=== PATIENT | male | born 1940 | race Caucasian/White ===

== ENCOUNTER 2017-04-15 09:28 | Inpatient (IN) ==
--- NOTE | 2017-04-14 22:03 | Discharge Summary ---
<Zuri Purdy - Last Filed: 04/14/17 22:00> Date of Encounter: 04/14/17 - Discharge Diagnosis (1) Rotator cuff tear arthropathy of right shoulder Priority: Primary Status: Acute (2) Status post total replacement of right shoulder Priority: Primary Status: Acute (3) History of abdominal aortic aneurysm (AAA) Priority: Secondary Status: Chronic (4) COPD (chronic obstructive pulmonary disease) Priority: Secondary Status: Chronic Qualifiers: COPD type: unspecified COPD Qualified Code(s): J44.9 - Chronic obstructive pulmonary disease, unspecified (5) HTN (hypertension) Priority: Secondary Status: Chronic Qualifiers: Hypertension type: essential hypertension Qualified Code(s): I10 - Essential (primary) hypertension (6) DMII (diabetes mellitus, type 2) Priority: Secondary Status: Chronic Qualifiers: Diabetes mellitus complication status: without complication Diabetes mellitus skilled nursing insulin use: without supervisor long goods use Qualified Code(s): E11.9 - Type 2 diabetes mellitus without complications (7) History of MD (myocardial infarction) Priority: Secondary Status: Chronic (8) Pancoast tumor of right lung Priority: Secondary Status: Chronic - Discharge Medications Home Medications: Aspirin 81 mg PO DAILY 08/30/16 [History] Cholecalciferol (D-3) [Vitamin D] 1,000 unit PO DAILY 08/30/16 [History] Amitriptyline [Elavil] 25 mg PO HS 12/24/16 [History] Tamsulosin [Flomax] 0.4 mg PO DAILY 12/24/16 [History] Levothyroxine [Synthroid] 25 mcg PO 0630 #30 tablet 02/08/17 [Rx] OxyCODONE Immed Rel [Roxicodone 5 MG] 5 - 10 mg PO Q6HR PRN #40 tablet 04/14/17 [Rx] Atorvastatin Calcium [Lipitor] 40 mg PO DAILY 04/15/17 [History] LORazepam [Ativan] 0.5 mg PO DAILY 04/15/17 [History] Allergies/Adverse Reactions: Allergies Penicillins [PCN] Allergy (Verified 02/07/17 11:26) See Comments "kidneys stopped working/ mouth swelled" Primary care physician: Kirby Mckinney, DO - Patient Status Disposition: Home, Self-Care Condition: Good - Discharge Instructions Follow Up With: Zuri Purdy, PAC [Physician Construction Consultant] - 04/25/17 2:00 pm Kirby Mckinney, DO [Primary Care Provider] - Additional Instructions: Discharge Instructions: Total Shoulder Please call [facility] ([phone]), your Primary Care Physician, or report to the Emergency Room if you have any of the following symptoms: Nausea, vomiting, fever greater that 101.5, swelling, chest pain, shortness of breath, increased pain/redness/drainage/odor for your incision site, numbness/ tingling, or any other concerning symptoms. ACTIVITY: Always keep your arm in the sling. Do not raise your arm away from your body. Do not use your arm to help with getting in or out of bed. No weight bearing permitted. Only perform those exercises given to you by your therapist. MEDICATIONS: Upon discharge resume your home medications. Take all the medications as prescribed. Take a stool softener if taking narcotic pain medications. Stool softeners are only effective if you drink enough fluids. Drink 6-8 glass of water or fluids a day, unless this is not allowed for another health problem. Despite using stool softeners, if you haven't had a bowel movement in 3 days, please switch to a gentle laxative. Gentle laxatives are sold over the counter. You should have a bowel movement within 24 hours, if not call the office. You will be discharged from the hospital with a prescription for pain medication. You are encouraged to decrease the use of narcotic pain medication as tolerated. Should you require a refill, please call the office. [facility] prescribes narcotic pain medication for only 4-6 weeks after surgery. If you require pain medication beyond this time period, you may be referred to your Primary Care Physician or to the Pain Clinic for further evaluation. Plan ahead for refills on pain medication as many narcotics either need to be picked up at the office or mailed. It is best to call 48-72 hours in advance of needing a prescription refill so you don't run out of medication. To help control the post-operative pain, you may take NSAIDs (Aleve,Advil, Motrin, Ibuprofen, Naprosyn) or Tylenol as prescribed on the bottle in addition to the pain medication. WOUND CARE: Leave the dressing on for 7-10 days. You may change the dressing if it becomes saturated greater than 50%. Do not get the dressing wet at anytime. Wash your hands with antibacterial soap, rinse and dry prior to any wound care. If you have itz the visiting nurse or rehab facility can remove the stapes 10-14 days after surgery and place steri-strips across the wound. Leave the steri-strips in place until they fall off on their own. You may let water from the shower run on top of the steri-strips. If you do not have a visiting nurse or rehab facility, you will need to return to the office at 10-14 days for the itz to be removed. If you have itching or redness around the dressing call the office. FOLLOW-UP: Please follow up with your surgeon in the orthopedic clinic, as scheduled - Hospital Course Hospital course: Mr. Damian is a 76 year old male - Time Spent with Patient Total time spent providing and/or coordinating discharge services: <Butch Aguilera - Last Filed: 04/18/17 14:43> Date of Encounter: 04/18/17 Time of Encounter: 14:42 - Discharge Diagnosis (1) Pancoast tumor of right lung Priority: Secondary Status: Chronic (2) Cancer associated pain Priority: Secondary Status: Chronic (3) Rotator cuff tear arthropathy of right shoulder Priority: Primary Status: Chronic (4) Status post total replacement of right shoulder Priority: Primary Status: Acute (5) History of abdominal aortic aneurysm (AAA) Priority: Secondary Status: Chronic (6) COPD (chronic obstructive pulmonary disease) Priority: Secondary Status: Chronic Qualifiers: COPD type: unspecified COPD Qualified Code(s): J44.9 - Chronic obstructive pulmonary disease, unspecified (7) HTN (hypertension) Priority: Secondary Status: Chronic Qualifiers: Hypertension type: essential hypertension Qualified Code(s): I10 - Essential (primary) hypertension (8) DMII (diabetes mellitus, type 2) Priority: Secondary Status: Chronic Qualifiers: Diabetes mellitus complication status: without complication Diabetes mellitus supervisor long goods insulin use: without supervisor long goods use Qualified Code(s): E11.9 - Type 2 diabetes mellitus without complications (9) History of MD (myocardial infarction) Priority: Secondary Status: Chronic Primary care physician: Kirby Mckinney DO - Patient Status Functional capacity at discharge: independent ambulation Overall status at discharge: patient is progressing back to baseline (Patient discharged on April 15) - Hospital Course Hospital course: Mr. Damian is a 76 year old male Status post total shoulder replacement. Patient discharged on the same day doing well no complaints. - Time Spent with Patient Total time spent providing and/or coordinating discharge services:
[2017-04-15] MEDS ORDERED: Famotidine 20 MG/2 ML VIAL IVP ONE (09:35)
[2017-04-15] MEDS ORDERED: Gabapentin 300 MG CAPSULE PO ONE (09:36)
[2017-04-15] MEDS ORDERED: Ringers Solution, Lactated 1,000 ML IVC SCH ×2 (09:45→15:22)
[2017-04-15] MEDS ORDERED: Clindamycin 900 MG/50 ML 900 MG/50 ML IV.SOLN IVPB ONE (09:47)
[2017-04-15] MEDS ORDERED: Albuterol 2.5 MG/3 ML NEBULIZER IH ONE (09:51)
--- NOTE | 2017-04-15 10:01 | History & Physical Report ---
Date of Encounter: 04/15/17 Time of Encounter: 10:01 24 Hour HP Update - Instructions Instructions: If the History and Physical is less than 30 days old and was completed prior to A.M. admission and or procedure and has NOT been updated on calendar day of procedure please complete this update prior to performing procedure. - Update Patient reports changes in Medical Condition: No Changes in examination, assessment, or condition: No Changes in Medication: No Preop tests/diagnostics Reviewed: Yes Surgery Remains Indicated: Yes Consent for Planned Operative Procedure(s) Verified: Yes - Pre-Operative Checklist Preoperative Checklist Indicated: No Prophylactic Antibiotic Ordered: Yes Is VTE Prophylaxis Indicated?: Yes
[2017-04-15] MEDS ORDERED: Lidocaine -MPF 2% 2 ML VIAL ONE (10:56)
[2017-04-15] MEDS ORDERED: *HR* Propofol 200 MG/20 ML VIAL IVP ONE (10:56)
[2017-04-15] MEDS ORDERED: *HR* Succinylcholine 200 MG/10 ML VIAL IVP ONE (10:56)
[2017-04-15] MEDS ORDERED: Ondansetron 4 MG/2 ML VIAL ONE (10:56)
[2017-04-15] MEDS ORDERED: *HR* FentaNYL (PF) 100 MCG/2 ML VIAL ONE (10:56)
--- NOTE | 2017-04-15 11:13 | Anesthesia Evaluation PreOp ---
Date of Encounter: 04/15/17 Time of Encounter: 11:00 - Past History Planned Operation: Rt Total Shoulder Replacement Cardiac History: [place] (1998), HTN, Hyperlipidemia, Cardiac Stent (1998), Other ( AAA stable 2015) Pulmonary History: Former smoker CITY EDITOR History: Denies Any Significant HX Other Medical History: Diabetes Type II (Accu check 109), GERD Anesthesia History: No Prior Anesthetic Complications Alcohol Use: none Drug use: none Medications and Allergies Aspirin 81 mg PO DAILY 08/30/16 [History] Cholecalciferol (D-3) [Vitamin D] 1,000 unit PO DAILY 08/30/16 [History] Amitriptyline [Elavil] 25 mg PO HS 12/24/16 [History] Tamsulosin [Flomax] 0.4 mg PO DAILY 12/24/16 [History] Levothyroxine [Synthroid] 25 mcg PO 0630 #30 tablet 02/08/17 [Rx] OxyCODONE Immed Rel [Roxicodone 5 MG] 5 - 10 mg PO Q6HR PRN #40 tablet 04/14/17 [Rx] Atorvastatin Calcium [Lipitor] 40 mg PO DAILY 04/15/17 [History] LORazepam [Ativan] 0.5 mg PO DAILY 04/15/17 [History] Allergies Penicillins [PCN] Allergy (Verified 02/07/17 11:26) See Comments "kidneys stopped working/ mouth swelled" - Meds/Allergy Pre-op Review Medications Reviewed: Yes Allergies Reviewed: Yes Anesthesia Results - Labs Laboratory Tests 04/09/17 04/09/17 12:54 12:54 Hgb 15.8 Hct 46.7 Plt Count 179 Sodium 139 Potassium 4.1 BUN 10 Creatinine 1.03 - Imaging EKG: report reviewed (SR with Arrhythmia) Anesthesia Exam O2 Sat Height 1.83 m Height 1.83 m Weight 71.214 kg Weight 71.214 kg O2 Sat by Pulse Oximetry 96 Vital Signs Temp Pulse Resp BP Pulse Ox 97.9 F 68 18 130/81 96 04/15/17 09:47 04/15/17 09:47 04/15/17 09:47 04/15/17 09:47 04/15/17 09:47 Height: 5'9 Weight: 155 lbs NPO (# of Hours): MN Pain Scale: 0 - HEENT Pupil (Motor): Pupils equal, EOMI Mallampati: III Teeth: Edentulous Oral Opening: Less than or equal to 3 - CITY EDITOR LOC: Oriented CITY EDITOR Motor: Normal RUE, Normal LUE, Normal RLE, Normal LLE, Normal Face CITY EDITOR Sensory: Normal: RUE, LUE, RLE, LLE, Face - Cardiac Rhythm: Regular Murmur: None JVD: No Carotid Bruit: No - Pulmonary Breath Sounds: bilateral Clear Respiratory Effort: Symmetrical Anesthesia Assess/Plan ASA Score: 3 (CAD HTN DM Gerd AAA) Modified [place] Scale for Level of Consciousness: Cooperative, oriented, and tranquil Anesthetic Plan: General, Regional Monitoring Plan: Standard Monitors Recovery Plan: PACU (Discussed GA and RA, agrees to proceed)
[2017-04-15] MEDS ORDERED: ROPIVACAINE HCL/PF 0.5% 30 ML VIAL ONE (11:42)
--- NOTE | 2017-04-15 12:07 | Anesthesia Procedures ---
Date of Encounter: 04/15/17 Time of Encounter: 11:50 Procedures: Anesthesia - Nerve Block Procedure Date: 04/15/17 Time: 11:50 Checklist: Correct Patient Identifier, Correct procedure Correct side: Right Blood Thinner: No Monitor Applied: EKG, BP, Pulse Oximetry Supplemental Oxygen via Nasal Cannula (L/min): 2 Sedation: Fentanyl (mcg): 100 Indication: Post Op Analgesia Pre-op Neuro Deficits: No Block Type: Supraclavicular, Other (intercostobrachial/ I. cervial Plexus) Catheter placed: No Sterile Technique: Yes Ultrasound used: Yes Anatomy identified: Yes Visual spread of Local: Yes Neuro Stimulation: No Blood on Needle Aspiration: No Smooth Injection of Local: Yes Pain with Injection of Local: No Prep: Chlorhexadine Needle: 22 x 50 mm Stimuplex Local: 0.25% Bupivicaine w/Clonidine 20 mcg/cc (20 cc total), Ropivacaine (0.5% with 8 of decadron supra. block) Volume (cc): 40 total Number of Attempts: 1 Complications: None/effective block Vitals: vss
[2017-04-15] MEDS ORDERED: EPHEDrine 50 MG/ML VIAL ONE (12:39)
[2017-04-15] MEDS ORDERED: *HR* Meperidine 25 MG/ML SYRINGE IVP PRN (12:54)
[2017-04-15] MEDS ORDERED: Ondansetron 4 MG/2 ML VIAL IVP ONE (12:54)
[2017-04-15] MEDS ORDERED: *HR* FentaNYL (PF) 100 MCG/2 ML VIAL IVP PRN (12:54)
--- NOTE | 2017-04-15 13:07 | Orthopedic Operative Note ---
Date of procedure: 04/15/17 Pre-op diagnosis: Right shoulder cuff tear arthropathy Post-op diagnosis: same Procedure: Procedure: Total Shoulder Replacment Reverse right Estimated blood loss: 100 cc Hardware: Metal and polyethylene replacement: Arthrex large glenoid baseplate, 2 4.5 screws. 1 6.5 screw, 42+4 glenosphere, 13 humeral stem, poly insert 6 Exam Under anesthesia: Full motion and no instability Procedural Notes: Irreparable tear supraspinatus and subscapularis Operative procedure: The patient was brought to the operating room and placed on the operating room table. After general anesthesia was administered the operative shoulder was examined. Findings were noted. The patient was placed in the modified beachchair position. All pressure points were padded appropriately. And the head was stabilized in the neutral position. The operative extremity was prepped and draped in the sterile surgical fashion. The patient received IV antibiotics prior to skin incision. A standard deltopectoral approach was made to the operative shoulder. Incision was made to the skin and subcutaneous tissue,hemo stasis was obtained with Bovie cautery. Using careful blunt dissection the cephalic vein was identified and mobilized medially. The deltopectoral interval was developed and the clavipectoral fascia was incised. The subscap was irreparable. The humerus was dislocated patient noted to have irreparable tear supraspinatus tendon, and the humeral cut was made along the anatomic neck. Anterior and posterior Bankart retractors were placed to expose the glenoid. The glenoid guide was seated and the centering hole was made. It was reamed with the appropriate reamer. The large baseplate was seated and secured with (2) 4.5 screws and one 6.5 screw. The baseplate was irrigated and dried and the knee to +4 Glenosphere was seated and secured with the Self taper. The Self taper was tested and found to be secure the humerus was redislocated and prepared with the diaphyseal reamers, followed by a broaching process up to the appropriate size 13 in the patient's anatomic version. The metaphyseal reamer was then utilized. Trial reduction found the shoulder to be relocatable. Trial components were removed and the appropriate 13 stem was impacted in place in the patient's anatomic version. Trial reduction found the shoulder to be relocatable and stable with the appropriate 6 Trial component was removed and the real implant was seated and secured the shoulder was reduced. The shoulder had excellent motion and excellent stability and no evidence of dislocation. The deep tissue was irrigated with pulse irrigation. The PA closed the shoulder. The deltopectoral interval was closed with a running #1 PDS suture, subcutaneous tissue was irrigated and closed with 0 PDS suture, the skin was closed with Dermabond. The patient was placed in a sterile dressing, abduction brace and extubated. The patient was then transferred to the recovery room in stable condition. Anesthesia: EDI Surgeon: Butch Aguilera Meteorological Technician: Zuri Purdy Condition: stable Disposition: PACU
[2017-04-15 14:11] LABS: Hematocrit 44.6 % (37.5-50.1); Hemoglobin 14.5 g/dL (12.9-16.9)
--- NOTE | 2017-04-15 14:29 | Anesthesia Evaluation Post Op ---
Date of Encounter: 04/15/17 Time of Encounter: 14:15 - Vital Signs Vital Signs: Vital Signs/O2 Sat/Glucose, Most Current Temp Pulse Resp BP Pulse Ox 04/15/17 14:10 97.5 F L 66 16 115/72 95 04/15/17 13:51 97.9 F 75 16 121/77 94 04/15/17 13:41 65 18 126/79 97 04/15/17 13:31 70 16 107/71 93 04/15/17 13:20 97.6 F 68 14 93/61 94 04/15/17 12:21 60 14 146/92 98 04/15/17 12:09 58 16 145/89 99 04/15/17 11:54 59 16 152/89 99 04/15/17 11:43 58 14 131/80 100 - Lungs Lungs: Clear Ascult./Percussion - Airway Airway: Non-obstructed - Cardiovascular Regular Rate - Mental Status Mental Status: Alert & Oriented, Answers Appropriately - Pain Pain Scale: 0 - Nausea Vomiting Nausea Vomiting: Not Present - Hydration Hydration: Ice chips - Discharge PostOp Status: Transfer Patient to floor
[2017-04-15] MEDS ORDERED: Naloxone 0.4 MG/ML INJ IVP PRN (15:22)
[2017-04-15] MEDS ORDERED: *HR* HYDROmorphone (PF) 1 MG/ML SYRINGE IVP PRN (15:22)
[2017-04-15] MEDS ORDERED: MOM Conc 10 ML UD.LIQ PO PRN (15:22)
[2017-04-15] MEDS ORDERED: Sennosides 8.6 MG TABLET PO PRN (15:22)
[2017-04-15] MEDS ORDERED: *HR* OxyCODONE Immed Rel 5 MG TABLET PO PRN ×2 (15:22)
[2017-04-15] MEDS ORDERED: Ondansetron 4 MG/2 ML VIAL IVP PRN (15:22)
[2017-04-15] MEDS ORDERED: Clindamycin 900 MG/50 ML 900 MG/50 ML IV.SOLN IVPB SCH (16:00)
[2017-04-15 16:56] VITALS: BP 124/82
[2017-04-15] MEDS ORDERED: *HR* Enoxaparin 30 MG/0.3 ML SYRINGE SQ SCH ×3 (18:00)
[2017-04-15] MEDS ORDERED: Temazepam 15 MG CAPSULE PO PRN (21:00)
[2017-04-16] MEDS ORDERED: Aspirin 81 MG TAB.CHEW PO SCH (09:00)
[2017-04-16] MEDS ORDERED: *HR* LORazepam 0.5 MG TABLET PO SCH (09:00)
[2017-04-16] MEDS ORDERED: Cholecalciferol (D-3) 1,000 UNIT TABLET PO SCH (09:00)
== END 2017-04-15 18:00 | disposition home or self-care (01) | DRG 483 ==
LOC: SAMDAY 09:28 → 3NENU 13:50
PROVIDERS: ADMIT Orthopaedic Surgery; ATTEND Orthopaedic Surgery

== ENCOUNTER 2018-02-27 05:51 | Inpatient (IN) ==
[2018-02-27] MEDS ORDERED: Vancomycin 1,000 MG, Sodium Chloride IRRigation 1,000 ML IR ONE (06:00)
[2018-02-27] MEDS ORDERED: Albuterol 2.5 MG/3 ML NEBULIZER IH ONE (06:27)
[2018-02-27] MEDS ORDERED: Ringers Solution, Lactated 1,000 ML IVC SCH (06:30)
--- NOTE | 2018-02-27 06:56 | Anesthesia Evaluation PreOp ---
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 History: Denies Any Significant HX Other Medical History: Hepatic (Elevated LFTs, unknown etiology), Renal (Kidney stones), Diabetes Type II (Diet controlled), Thyroid, GERD (Occasional) Anesthesia History: No Prior Anesthetic Complications, Past Anesthesia Alcohol Use: none Drug use: none Medications and Allergies Tamsulosin [Flomax] 0.4 mg PO DAILY 12/24/16 [History] Levothyroxine [Synthroid] 25 mcg PO 0630 #30 tablet 02/08/17 [Rx] Aspirin Enteric Coated [Aspirin EC] 325 mg PO DAILY 05/09/17 [History] Atorvastatin [Lipitor] 40 mg PO DAILY 09/25/17 [History] Orphenadrine Citrate 100 mg PO BID 02/27/18 [History] Temazepam [Restoril] 30 mg PO HS PRN 02/27/18 [History] 3 Allergy/AdvReac Type Severity Reaction Status Date / Time Penicillins [PCN] Allergy Hives Verified 02/27/18 06:57 - Meds/Allergy Pre-op Review Medications Reviewed: Yes Allergies Reviewed: Yes Anesthesia Results - Labs Laboratory Tests 10/29/16 02/04/18 02/11/18 10:01 10:01 08:30 Hgb Hct Plt Count PT INR APTT Creatinine Est GFR (Non-Af Amer) Hemoglobin A1c Calcium Magnesium 1.8 Alkaline Phosphatase 133 H Total Alk Phosphatase 124 H Albumin 4.1 Globulin 2.3 L 02/25/18 02/25/18 02/25/18 13:42 13:42 13:42 Hgb 15.2 Hct 46.4 Plt Count 151 PT 11.9 INR 1.1 APTT 33.5 Creatinine 0.89 Est GFR (Non-Af Amer) > 60 Hemoglobin A1c Calcium 8.9 Magnesium Alkaline Phosphatase Total Alk Phosphatase Albumin Globulin 02/25/18 13:42 Hgb Hct Plt Count PT INR APTT Creatinine Est GFR (Non-Af Amer) Hemoglobin A1c 6.5 H Calcium Magnesium Alkaline Phosphatase Total Alk Phosphatase Albumin Globulin - Imaging EKG: report reviewed (SINUS RHYTHM MODERATE INTRAVENTRICULAR CONDUCTION DELAY NONSPECIFIC ST & T-WAVE ABNORMALITY) Additional studies: STRESS TEST 02/21/2018: Fixed basal inferolateral defect Gated EF 57% TTE 08/2017: LVEF 50-55%. Normal LV systolic function with regional varation. Mild left ventricular diastolic dysfunction. Normal right ventricular structure and function. Probably moderate to severe mitral regurgitation - jet is eccentric and not well quantified. Possible poor coaptation or leaflet prolapsing. Recommend CARMELO for better visualization. No pulmonary hypertension. There is a trivial pericardial effusion present without tamponade. Anesthesia Exam O2 Sat Height 1.83 m Height 1.83 m Weight 67.585 kg Weight 67.585 kg O2 Sat by Pulse Oximetry 97 Vital Signs/O2 Sat/Glucose, Most Recent Temp Pulse Resp BP Pulse Ox 97.9 F 60 18 118/75 97 02/27/18 06:18 02/27/18 06:18 02/27/18 06:18 02/27/18 06:18 02/27/18 06:18 Blood Glucose* 117 - HEENT Mallampati: I Teeth: Edentulous Oral Opening: Greater than 3 - BLOCKING MACHINE OPERATOR LOC: Oriented BLOCKING MACHINE OPERATOR Motor: Normal RUE, Normal LUE, Normal RLE, Normal LLE, Normal Face - Cardiac Rhythm: Regular - Pulmonary Breath Sounds: bilateral Clear Anesthesia Assess/Plan ASA Score: 3 Modified [place] Scale for Level of Consciousness: Cooperative, oriented, and tranquil Anesthetic Plan: General Autologous Blood: Yes (Possible) Monitoring Plan: Standard Monitors, A-Line, CVC (Possible) Recovery Plan: PACU Anes Supervising Prov Stmt: Patient informed and consented. Risks, benefits, and alternatives discussed. Patient wishes to proceed.
[2018-02-27] MEDS ORDERED: Heparin 1,000 UNITS/500 mL 500 ML ONE ×2 (07:17→10:17)
[2018-02-27] MEDS ORDERED: Heparin 1,000 UNITS/500 mL 2,000 ML ONE (07:17)
[2018-02-27] MEDS ORDERED: CeFAZolin Syr 2,000MG/20 ML 2,000 MG/20 ML SYRINGE IVPB ONE (07:30)
--- NOTE | 2018-02-27 07:36 | History & Physical Report ---
Date of Encounter: 02/27/18 Time of Encounter: 07:28 24 Hour HP Update - Instructions Instructions: If the History and Physical is less than 30 days old and was completed prior to A.M. admission and or procedure and has NOT been updated on calendar day of procedure please complete this update prior to performing procedure. - Update Patient reports changes in Medical Condition: No Changes in examination, assessment, or condition: No Changes in Medication: No Preop tests/diagnostics Reviewed: Yes Surgery Remains Indicated: Yes Consent for Planned Operative Procedure(s) Verified: Yes - Pre-Operative Checklist Preoperative Checklist Indicated: Yes Prophylactic Antibiotic Ordered: Yes (vancomycin due to MRSA risk) Home Medications Include Beta Ingrid: No Beta Ingrid Taken Today (Day of Surgery): No Beta Ingrid Taken Yesterday (Day Prior to Surgery): No Is VTE Prophylaxis Indicated?: Yes
[2018-02-27] MEDS ORDERED: Isovue-300 150 ML INFUS..BTL IV ONE ×2 (07:40→08:04)
[2018-02-27] MEDS ORDERED: Isovue-300 50 ML VIAL IVP ONE ×2 (07:40→08:04)
[2018-02-27] MEDS ORDERED: *HR* FentaNYL (PF) 100 MCG/2 ML VIAL ONE ×2 (07:41→09:26)
[2018-02-27] MEDS ORDERED: *HR* Propofol 200 MG/20 ML VIAL IVP ONE (07:42)
[2018-02-27] MEDS ORDERED: *HR* Norepinephrine 4 MG/4 ML VIAL IVC ONE (07:43)
[2018-02-27] MEDS ORDERED: Acetaminophen IV 1,000 MG/100 ML INFUS..BTL ONE (07:44)
[2018-02-27] MEDS ORDERED: *HR* Vasopressin 20 UNIT/ML VIAL ONE (07:44)
[2018-02-27] MEDS ORDERED: Norepinephrine 4 MG in D5% in Water 250 ML IVC SCH (07:45)
[2018-02-27] MEDS ORDERED: Nitroglycerin 25 MG/250 ML INFUS..BTL IVC ONE (08:47)
[2018-02-27] MEDS ORDERED: *HR* Phenylephrine 10 MG/ML VIAL ONE (09:17)
[2018-02-27] MEDS ORDERED: *HR* Succinylcholine 200 MG/10 ML VIAL IVP ONE (09:17)
[2018-02-27] MEDS ORDERED: Dexamethasone 4 MG/ML VIAL ONE (09:17)
[2018-02-27] MEDS ORDERED: Lidocaine -MPF 2% 2 ML VIAL ONE (09:17)
[2018-02-27] MEDS ORDERED: *HR* Rocuronium Bromide 50 MG/5 ML VIAL ONE (09:17)
[2018-02-27] MEDS ORDERED: *HR* Heparin 5,000 UNIT/ML VIAL ONE (09:47)
[2018-02-27] MEDS ORDERED: *HR* Metoprolol 5 MG/5 ML VIAL IVP ONE (10:22)
[2018-02-27] MEDS ORDERED: *HR* Promethazine 25 MG/ML VIAL IVP PRN (10:43)
[2018-02-27] MEDS ORDERED: *HR* OxyCODONE Immed Rel 5 MG TABLET PO PRN ×2 (10:43→12:27)
[2018-02-27] MEDS ORDERED: Ondansetron 4 MG/2 ML VIAL IVP ONE (10:43)
[2018-02-27] MEDS ORDERED: Neostigmine Methylsulfate 3 MG/3 ML SYRINGE ONE ×2 (11:02→11:13)
[2018-02-27] MEDS ORDERED: Ipratropium/Albuterol Neb 3 ML ONE (11:12)
--- NOTE | 2018-02-27 11:17 | Operative Note ---
Date of procedure: 02/27/18 Pre-op diagnosis: abdominal aortic aneurysm Post-op diagnosis: same Procedure: 1. Introduction of catheter into the aorta via right common femoral artery. 2. Introduction of catheter into the aorta via left common femoral artery. 3. Right femoral vessel exposure for endograft placement. 4. Left femoral vessel exposure for endograft placement. 5. Endograft repair of abdominal aortic aneurysm with Cook Zenith graft and two docking limbs including radiologic supervision and interpretation. 6. Angioplasty of the bilateral docking limbs with overlap using 12 x 40 mm balloons. Complications: None Anesthesia: GETA Surgeon: John Ramirez Was there an assistant finance manager present: Yes Software Asset Manager: Min Mitchell Estimated blood loss (cc): 50 Specimen: None Condition: stable Disposition: PACU Procedure in Detail: Indications: The patient is a 77 year old male with a history of COPD, hyperlipidemia, coronary artery disease, hypertension and diabetes. His chronic history of kidney stones. As part of his evaluation he underwent a CT scan. He was found to have a 5cm infrarenal abdominal aortic aneurysm. His anatomy was appropriate for endograft placement. Repair was recommended to reduce his risk of rupture. Procedure: The patient was identified, brought to the operating room and placed in the supine position on the operating room table. After induction of general endotracheal anesthesia, the patient was cleaned and draped in normal sterile fashion. Oblique incisions were made over both groins sharply. Hemostasis was obtained with electrocautery. Using blunt and sharp and electrocautery dissection, the right and left common, deep and superficial femoral arteries were dissected circumferentially and surrounded with Vesseloops. At this point, the patient received 5000 units of heparin intravenously and then bilateral femoral punctures with large-bore needles were performed. Bentson wires were advanced into the aorta under fluoroscopic view. Given the anatomy, the main body was selected to be the right side of the patient. The needles were exchanged for bilateral #8-Kyrgyz sheaths and a long Pigtail catheter was advanced over the right wire into the aortic arch. The wire was replaced with a Lunderquist wire. The catheter was removed and repositioned in the suprarenal aorta via the left femoral artery. The main body was inserted over the Lunderquist wire with the contralateral limb being in the anterolateral position. An aortogram was then performed at the level of the renal artery. The graft was positioned just below the renal arteries and the first 2 segments were deployed. A repeat aortogram revealed adequate infrarenal placement. The graft was then deployed until the contralateral limb exposed. After confirming adequate infrarenal placement, the suprarenal stent was deployed in the usual fashion. The contralateral limb was then selected with a Bentson wire using a guiding catheter. Intragraft placement of the wire was confirmed by placing the pigtail and spinning it freely as well as injecting a small amount of contrast. An oblique view of the pelvis was performed with contrast to size the left extension limb. The #8-Kyrgyz sheath was removed and exchanged for the appropriate limb, which was advanced under fluoroscopic view and positioned. It was then expanded and the introducer was removed. The remaining portion of the main body was deployed, the top cap was retrieved and the introducer was removed. An oblique view of the right pelvis was performed in a similar fashion to determine the length of the graft on the right. The graft extension was then advanced on the right and positioned in the usual fashion. Upon completion of the graft docking limb extension, it was noted that there were significant stenosis at the aortic bifurcation. Bilateral 12 x 40 mm balloons were advanced into the limbs. Angioplasty was performed along the limbs in their entirety. An duplex reveals resulted in significant improvement of the luminal diameter of the limbs. The angioplasty balloons were removed. A Coda balloon was then advanced into the graft proximal and distal endpoints as well as overlap were expanded with gentle pressure. The balloon was left in the suprarenal position and a Flush catheter was placed in the suprarenal aorta. A Flush completion angiogram revealed no evidence of an endoleak. Tension was applied to the Vesseloops in the groin. The bilateral sheaths were then removed. After confirming hemodynamic stability, the wires were then removed. The bilateral arteriotomies were repaired with a running 6-0 Prolene. Antibiotic irrigation was infused into the groin. Platelet rich and platelet poor plasma were infused into the incisions. The bilateral groins were closed with a single layer of 2-0 Vicryl followed by two layers of 3-0 Vicryl followed by a layer of 3-0 monocryl in the subcuticular region. Sterile dressings were applied. The patient was then extubated and taken to the recovery room in stable condition.
--- NOTE | 2018-02-27 11:28 | Operative Note ---
Date of procedure: 02/27/18 Pre-op diagnosis: Abdominal aortic aneurysm Post-op diagnosis: same Procedure: Endovascular repair of abdominal aortic aneurysm using Cook Zenith stent graft system-4 component repair with main body placed via right side with 1 extension stent graft and 2 component stent grafts placed via left side Bilateral open femoral artery exposure Aortogram, nonselective, bilateral Bilateral common iliac artery balloon angioplasty with 12 x 40 mm balloons Complications: None Anesthesia: GETA Surgeon: John Ramirez Co-Surgeon: Min Mitchell Was there an middle school assistant principal present: No Estimated blood loss (cc): 50 Specimen: None Condition: stable Disposition: PACU Procedure in Detail: History Ben Damian is a 77-year-old white male who was found to have a significant abdominal aortic aneurysm. He had preoperative evaluation including imaging of the aorta as well as cardiac evaluation. The patient comes in operating room for a scheduled endovascular treatment of the aneurysm. Procedure After informed consent was obtained the patient was taken to the operating room. An oral endotracheal anesthesia was established under arterial line pressure monitoring. The abdomen groin and upper thighs were sterilely prepped and draped. A timeout protocol was observed. A 2 team surgical approach was utilized for this procedure because of the patient's comorbidities. This also facilitated complex intraoperative decision-making as well as to minimize the anesthetic time and blood loss. Open femoral exposure was achieved bilaterally. Oblique incisions were made in the groin and dissection was carried down to the common femoral artery. This was controlled with vessel loops bilaterally. A Star closure was noted in the left groin. An 18-gauge needle was then used and the common femoral arteries were punctured in a retrograde fashion bilaterally. Sutherland wire was then advanced and then an 8 Greenlandic sheath was placed over the wire bilaterally. Heparin was administered in a dose of 5000 units. A pigtail catheter was inserted via the right side and the wire was exchanged for a stiff Lunderquist wire. The pigtail catheter was then removed and placed on the left side. The main body was then selected to be a 30 x 80 mm Zenith stent graft. This was then deployed under fluoroscopic control. An aortogram was performed via the left-sided pigtail catheter to demonstrate the renal artery position. The main body was opened to the point that the docking limb was exposed. The top cap was also retrieved after the suprarenal stents were deployed. In an oblique position the left-sided docking limb gate was then cannulated. This required a stiff glide wire in order to cannulate. After this was achieved and appropriate position confirmed a measurement was taken of the left iliac system with a marker pigtail catheter in place via the left groin sheath. The measurements here required the placement of a bridge device and so therefore 2 components were needed in the left iliac system. The initial component was a 13 x 56 mm bridge device. This was then followed by a 16 x 90 stent graft. It was noted that there was significant resistance on the left side reflecting vascular stenosis. Therefore this area would require dilatation. The main body was then completely deployed. An angiogram was then obtained via the right groin and then the fourth and final component was selected for deployment of the fourth and final component was a 13 x 1 07 mm stent graft. This was then deployed. At this point then the iliac system was ballooned area and this was performed by using a 12 x 40 balloon placed simultaneously via the left and right side. The balloons were inflated for the proximal portion of the iliac system bilaterally and for essentially the entire length of the left common iliac system. After this was done the 46 mm Irce balloon was used to gently mold the stent graft in position. The marker pigtail catheter was then passed from the right side into the suprarenal aorta. A completion aortogram was obtained. This demonstrated patency of the renal arteries and preservation of the iliac bifurcation distally. No endovascular leaks were identified. With this now confirmed the devices were removed. The femoral artery puncture sites were closed using 6-0 Prolene suture. The wounds were irrigated and hemostasis achieved. There were closed in layers using absorbable suture. Dry sterile dressings were applied. The patient was extubated in the operating room and taken to the recovery room in stable condition. There were no intraoperative complications.
[2018-02-27] MEDS ORDERED: Temazepam 15 MG CAPSULE PO PRN (12:27)
[2018-02-27] MEDS ORDERED: *HR* HYDROcodone/Acet 5/325 mg TABLET PO PRN (12:27)
[2018-02-27] MEDS ORDERED: Ondansetron 4 MG/2 ML VIAL IVP PRN (12:27)
[2018-02-27] MEDS ORDERED: OXYCODONE Oral CONC 10 MG/0.5 ML ORAL.SYG SL PRN ×2 (12:27)
[2018-02-27] MEDS ORDERED: *HR* Labetalol 20 MG/4 ML SYRINGE IVP PRN (12:27)
[2018-02-27] MEDS ORDERED: Acetaminophen 325 MG TABLET PO PRN (12:27)
[2018-02-27] MEDS ORDERED: Naloxone 0.4 MG/ML INJ IVP PRN (12:27)
--- NOTE | 2018-02-27 14:31 | Anesthesia Evaluation Post Op ---
Date of Encounter: 02/27/18 Time of Encounter: 12:10 Notes: Patient's vital signs have been reviewed. Patient is stable postoperatively and has adequately recovered from anesthesia. Patient is determined to have stable airway patency and respiratory function including respiratory rate and oxygen saturation. Patient has a stable heart rate, blood pressure and adequate hydration. Patients mental status is acceptable. Patients temperature is appropriate. Pain and nausea are adequately controlled. - Discharge PostOp Status: Transfer Patient to floor
[2018-02-27] MEDS: Aspirin Enteric Coated 325 MG Tablet PO SCH (14:51)
[2018-02-27] MEDS: *HR* Metoprolol 5 MG/5 ML VIAL IVP SCH ×3 (14:52→23:57)
[2018-02-27] MEDS: Orphenadrine 100 MG TABLET.ER PO SCH ×2 (14:52→21:08)
[2018-02-27] MEDS: ceFAZolin 2,000 MG in 0.9 % Sodium Chloride 100 ML IVPB SCH ×2 (14:55→21:08)
[2018-02-27] MEDS ORDERED: Vancomycin 1,000 MG in D5% in Water 250 ML IVPB ONE (19:00)
[2018-02-28] MEDS ORDERED: *HR* Heparin 5,000 UNIT/ML VIAL SQ SCH ×2 (06:00)
[2018-02-28] MEDS: *HR* Metoprolol 5 MG/5 ML VIAL IVP SCH (06:14)
[2018-02-28 06:15] LABS: Basophils % 0.1 %; Eosinophils % 0.1 %; Hematocrit 44.5 % (37.5-50.1); Hemoglobin 14.1 g/dL (12.9-16.9); Immature Granulocytes % 0.7 % (0-4); Lymphocytes # 1.6 K/mcL (0.6-4.6); Lymphocytes % 10.3 %; Mean Corpuscular HGB Conc 31.7 g/dL (31.6-35.5); Mean Corpuscular Hemoglobin 31.4 pg (28.0-33.3); Mean Corpuscular Volume 99.1 fL (83.0-100.0); Mean Platelet Volume 11.4 fL (9.4-12.4); Monocytes # 1.5 K/mcL (0.0-1.3); Monocytes % 9.7 %; Platelet Count 122 K/mcL (140-400); Red Blood Count 4.49 M/mcL (4.19-5.50); Red Cell Distribution Width 13.5 % (11.5-14.5); Segmented Neutrophils % 79.1 %
[2018-02-28 06:17] LABS: Neutrophils # 12.3 K/mcL (1.6-8.9)
[2018-02-28] MEDS ORDERED: Levothyroxine 25 MCG TABLET PO SCH (06:30)
[2018-02-28 06:31] LABS: BUN/Creatinine Ratio 15 (6-26); Blood Urea Nitrogen 13 mg/dL (8-23); Calcium 8.5 mg/dL (8.6-10.3); Carbon Dioxide 24 mEq/L (23-29); Chloride 105 mEq/L (98-107); Glucose 135 mg/dL (70-105); Osmolality,Calculated 284 (280-300); Potassium 4.8 mEq/L (3.5-5.1); Sodium 136 mEq/L (136-145); eGFR For African Americans > 60 (> 60); eGFR For Non-African Americans > 60 (> 60)
--- NOTE | 2018-02-28 07:09 | Discharge Summary ---
Orders not resulted at time of discharge: Pending orders 02/27/18 06:45 Red Blood Cells [BBK] Stat Type and Screen [BBK] Stat Date of Encounter: 02/28/18 Time of Encounter: 07:40 - Discharge Diagnosis (1) Abdominal aortic aneurysm Status: Acute (2) Metastatic lung carcinoma Status: Acute (3) COPD (chronic obstructive pulmonary disease) Status: Chronic Qualifiers: (4) HTN (hypertension) Status: Chronic Qualifiers: (5) DMII (diabetes mellitus, type 2) Status: Chronic Qualifiers: - Hospital Course Hospital course: Mr. Damian is a 77 year old male - Time Spent with Patient Total time spent providing and/or coordinating discharge services: - Discharge Medications Prescriptions: OxyCODONE/APAP 5/325 [Percocet 5/325 MG] 1 each PO Q6HR PRN 7 Days #25 tablet PRN Reason: Postoperative pain Home Medications: Tamsulosin [Flomax] 0.4 mg PO DAILY 12/24/16 [History] Levothyroxine [Synthroid] 25 mcg PO 0630 #30 tablet 02/08/17 [Rx] Aspirin Enteric Coated [Aspirin EC] 325 mg PO DAILY 05/09/17 [History] Atorvastatin [Lipitor] 40 mg PO DAILY 09/25/17 [History] Orphenadrine Citrate 100 mg PO BID 02/27/18 [History] Temazepam [Restoril] 30 mg PO HS PRN 02/27/18 [History] OxyCODONE/APAP 5/325 [Percocet 5/325 MG] 1 each PO Q6HR PRN 7 Days #25 tablet [Rx] Allergies/Adverse Reactions: 3 Allergy/AdvReac Type Severity Reaction Status Date / Time Penicillins [PCN] Allergy Hives Verified 02/27/18 06:57 Date of admission: 02/27/18 12:09 Primary care physician: Kirby Mckinney, Exam Vital Signs, Last 4 Hours Temp Pulse Resp BP Pulse Ox 02/28/18 06:59 98.3 F 55 18 124/79 90 02/28/18 04:45 54 02/28/18 04:28 97.8 F 51 16 124/65 - Patient Status Disposition: Home, Self-Care Condition: Good Overall status at discharge: patient is back to baseline - Discharge Instructions Follow Up With: Aisha Sandoval FIELD ARTILLERY TARGETING TECHNICIAN [Advanced Practice Nurse] - 03/06/18 10:30 am John Ramirez MD [Partnered Physician] - 04/08/18 1:50 pm Additional Instructions: May remove bandages and shower on 03/01/2018. Wash wounds gently and pat to dry. Applied dry gauze to wounds daily for 7 days. No tub baths or swimming until 03/25/2018. Call Dr. Ramirez at [phone] with questions or concerns. - Diet and Activity Activity: increase activity as tolerated Diet: advance to your usual diet
[2018-02-28] MEDS: Orphenadrine 100 MG TABLET.ER PO SCH (07:52)
[2018-02-28] MEDS: Aspirin Enteric Coated 325 MG Tablet PO SCH (07:52)
[2018-02-28 11:33] VITALS: BP 156/86
== END 2018-02-28 12:10 | disposition home or self-care (01) | DRG 269 ==
LOC: SAMDAY 05:51 → 2NNU 12:09
PROVIDERS: ADMIT Surgery; ATTEND Surgery